=== PATIENT | female | born 1975 | race Caucasian/White ===

== ENCOUNTER 2016-04-26 22:25 | Emergency (ER) | payer SELFPAY ==
[2016-04-26] MEDS ORDERED: ASPIRIN 81 MG TABLET, CHEWABLE PO ONE (23:20)
--- NOTE | 2016-04-26 23:31 | ER Document Report ---
ED General - General Chief Complaint: Chest Tightness Stated Complaint: CHEST PAIN Notes: Patient is a 41-year-old female with past medical history of coronary artery disease with a prior history of AL 3 years ago with a single stent placed, hypertension, hyperlipidemia who presents with 7 hours of chest pain. Does describe it as a left-sided, sharp, dull pain. It has been unchanged since onset. Nothing improves the pain. States that her symptoms feel different than when she had her AL in the past. She denies any associated shortness of breath , nausea, vomiting, exertional dyspnea or pain. Movement does worsen the pain. She has not seen her primary care physician regarding today's concerns. - Related Data Allergies/Adverse Reactions: benzoin Allergy (Verified 04/26/16 22:42) Past Medical History - General Information source: Patient - Social History Smoking Status: Never Smoker Frequency of alcohol use: None Drug Abuse: None Lives with: Spouse/Significant other Family History: Reviewed & Not Pertinent Patient has suicidal ideation: No Patient has homicidal ideation: No Renal/ Medical History: Denies: Hx Peritoneal Dialysis Review of Systems - Review of Systems Notes: Constitutional: Negative for fever. HENT: Negative for sore throat. Eyes: Negative for visual changes. Cardiovascular: Positive for chest pain. Respiratory: Negative for shortness of breath. Gastrointestinal: Negative for abdominal pain, vomiting or diarrhea. Genitourinary: Negative for dysuria. Musculoskeletal: Negative for back pain. Skin: Negative for rash. Neurological: Negative for headaches, weakness or numbness. 10 point ROS negative except as marked above and in HPI. Physical Exam - Vital signs Vitals: Temp Pulse Resp BP Pulse Ox 97.9 F 85 18 162/80 H 96 04/26/16 22:29 04/26/16 22:29 04/26/16 22:29 04/26/16 22:29 04/26/16 22:29 Interpretation: Hypertensive Notes: PHYSICAL EXAMINATION: GENERAL: Well-appearing, well-nourished and in no acute distress. HEAD: Atraumatic, normocephalic. EYES: Pupils equal round and reactive to light, extraocular movements intact, sclera anicteric, conjunctiva are normal. ENT: nares patent, oropharynx clear without exudates. Moist mucous membranes. NECK: Normal range of motion, supple without lymphadenopathy LUNGS: Breath sounds clear to auscultation bilaterally and equal. No wheezes rales or rhonchi. HEART: Regular rate and rhythm without murmurs ABDOMEN: Soft, nontender, normoactive bowel sounds. No guarding, no rebound. No masses appreciated. EXTREMITIES: Normal range of motion, no pitting or edema. No cyanosis. NEUROLOGICAL: No focal neurological deficits. Moves all extremities spontaneously and on command. PSYCH: Normal mood, normal affect. SKIN: Warm, Dry, normal turgor, no rashes or lesions noted. Course - Re-evaluation Re-evalutation: 04/26/16 23:29 Presentation of chest pain in an otherwise well appearing patient. Low clinical suspicion for ACS given clinical history, exam, EKG without ST elevations or depressions, and negative initial troponin. HEART score less than or equal to 3. PE also seems unlikely given clinical history, absence of tachycardia or dyspnea. Patient is PERC criteria negative. CXR without evidence of pneumothorax or pneumonia. No widened mediastinum. Aortic dissection also seems unlikely given history, symmetric pulses, CXR, and vitals. Given reassuring evaluation, will plan for discharge home at this time with return precautions and follow-up recommendations. HEART Score: History:0 EC Age:0 Risk Factors:2 Troponin:0 Total: 3 04/27/16 02:43 Second troponin remains negative. Patient continues to be chest pain-free. Final assessment: Chest pain in a patient without evidence of cardiac or other serious etiology on workup today. I discussed with patient that, based on their age, risk factors and emergency department testing today, the likelihood that their symptoms are related to a heart attack is very low (estimated risk of heart attack or over the next 30 days of less than 1%). The patient demonstrates decision making capacity and has verbalized an understanding of these risks to me. Based on this, the patient has chosen to follow-up as an outpatient. Usual chest pain return precautions reviewed. The patient states understanding and agreement with this plan. - Vital Signs Vital signs: Temp Pulse Resp BP Pulse Ox 97.9 F 85 23 H 128/70 H 97 04/26/16 22:29 04/26/16 22:29 04/27/16 02:01 04/27/16 02:01 04/27/16 02:01 - Laboratory Result Diagrams: 04/26/16 23:02 Laboratory results interpreted by me: 04/26/16 23:02 Glucose 164 H - Diagnostic Test Radiology reviewed: Image reviewed, Reports reviewed Radiology results interpreted by me: 04/27/16 00:56 Chest x-ray: No pneumothorax or wide mediastinum - EKG Interpretation by Me Additional EKG results interpreted by me: 04/26/16 23:31 Normal sinus rhythm. Rate 78. No ST elevations or depressions. T-wave inversions in V2-3. QTC 428 Discharge - Discharge Clinical Impression: Chest pain Qualifiers: Chest pain type: unspecified Qualified Code(s): R07.9 - Chest pain, unspecified Condition: Good Disposition: HOME, SELF-CARE Additional Instructions: You were seen today for chest pain. The exact cause of your pain is unclear. However, based on your cardiac enzyme testing, chest x-ray, and EKG it does not appear that it is from an immediately life-threatening cause at this time. Although your testing here is normal is critical that you follow-up with your primary care physician for continued evaluation of this chest pain and possible stress testing. I recommended you see your physician within the next 24-48 hours to be evaluated for consideration of a stress test. Please return to emergency department immediately if you have worsening of your chest pain, shortness of breath, vomiting, become unable to exert yourself due to pain or difficulty breathing, you pass out, or have any pain that radiates into your arms, jaw, or back. Please also return if you have any additional symptoms that are concerning to you.
[2016-04-26 23:44] LABS: ANION GAP 11 (5-19); BLOOD UREA NITROGEN 17 mg/dL (7-20); CARBON DIOXIDE 28 mmol/L (22-30); CHLORIDE 100 mmol/L (98-107); CREATININE RESULT 0.77 mg/dL (0.52-1.25); GLUCOSE 164 mg/dL (75-110); SODIUM 139.2 mmol/L (137-145)
[2016-04-27] MEDS ORDERED: MORPHINE SULFATE 10 MG/ML INJ IV PRN (00:55)
[2016-04-27 03:05] VITALS: BP 149/82
--- NOTE | 2016-04-27 09:24 | EKG REPORT ---
SEVERITY:- BORDERLINE ECG - SINUS RHYTHM CONSIDER ANTERIOR INFARCT BORDERLINE T ABNORMALITIES, ANTERIOR LEADS : Confirmed by: Roe Mcduffie 27-Apr-2016 09:22:39
== END 2016-04-27 03:05 | disposition home or self-care (01) ==
LOC: ER 22:25
DX: R07.89 Other chest pain (principal); I25.10 Atherosclerotic heart disease of native coronary artery without angina pectoris; I25.2 Old myocardial infarction; I10 Essential (primary) hypertension; Z98.61 Coronary angioplasty status; Z88.8 Allergy status to other drugs, medicaments and biological substances
CPT/HCPCS: 36415; 71010; 80048; 84484; 93005; 93010; 99285

== ENCOUNTER 2016-10-18 16:43 | Emergency (ER) | payer SELFPAY ==
--- NOTE | 2016-10-18 17:00 | ER Document Report ---
ED Medical Screen (RME) - General Chief Complaint: Suicidal Ideation Stated Complaint: EDIVC Time Seen by Provider: 10/18/16 16:57 Notes: Patient presents with suicidal ideation and depression. Patient is on IVC and is accompanied by officers. She denies any medical complaints at this time. TRAVEL OUTSIDE OF THE [place] IN LAST 30 DAYS: No - Related Data Allergies/Adverse Reactions: benzoin Allergy (Verified 10/18/16 16:48) Past Medical History Renal/ Medical History: Denies: Hx Peritoneal Dialysis Physical Exam - Vital signs Vitals: Temp Pulse Resp BP Pulse Ox 99.0 F 103 H 20 188/92 H 94 10/18/16 16:50 10/18/16 16:50 10/18/16 16:50 10/18/16 16:50 10/18/16 16:50 Course - Vital Signs Vital signs: Temp Pulse Resp BP Pulse Ox 99.0 F 103 H 20 188/92 H 94 10/18/16 16:50 10/18/16 16:50 10/18/16 16:50 10/18/16 16:50 10/18/16 16:50
[2016-10-18 17:35] LABS: ABSOLUTE BASOPHILS # (AUTO) 0.1 10^3/uL (0.0-0.2); ABSOLUTE EOSINOPHILS # (AUTO) 0.3 10^3/uL (0.0-0.6); ABSOLUTE LYMPHOCYTES (AUTO) 2.3 10^3/uL (0.5-4.7); ABSOLUTE MONOCYTES (AUTO) 0.5 10^3/uL (0.1-1.4); ABSOLUTE NEUT (AUTO) 6.9 10^3/uL (1.7-8.2); BASOPHILS % (AUTO) 0.9 % (0-2); EOSINOPHILS % (AUTO) 2.7 % (0-6); HEMATOCRIT 45.3 % (36.0-47.0); HEMOGLOBIN 15.6 g/dL (12.0-15.5); HGB HCT DIFFERENCE 1.5; LYMPHOCYTES % (AUTO) 22.6 % (13-45); MEAN CORPUSCULAR HEMOGLOBIN 30.1 pg (27.0-33.4); MEAN CORPUSCULAR HGB CONC 34.4 g/dL (32.0-36.0); MEAN CORPUSCULAR VOLUME 88 fl (80-97); MONOCYTES % (AUTO) 5.4 % (3-13); RED BLOOD COUNT 5.18 10^6/uL (3.72-5.28); RED CELL DISTRIBUTION WIDTH 12.9 % (11.5-14.0); SEGMENTED NEUTROPHILS % (AUTO) 68.4 % (42-78); WHITE BLOOD COUNT 10.1 10^3/uL (4.0-10.5)
[2016-10-18 17:56] LABS: ALANINE AMINOTRANSFERASE 36 U/L (9-52); ALBUMIN 4.6 g/dL (3.5-5.0); ALKALINE PHOSPHATASE 106 U/L (38-126); ANION GAP 17 (5-19); ASPARTATE AMINO TRANSFERASE 21 U/L (14-36); BILIRUBIN,DIRECT 0.3 mg/dL (0.0-0.4); BILIRUBIN,TOTAL 0.5 mg/dL (0.2-1.3); BLOOD UREA NITROGEN 12 mg/dL (7-20); CALCIUM 9.7 mg/dL (8.4-10.2); CARBON DIOXIDE 22 mmol/L (22-30); CHLORIDE 103 mmol/L (98-107); CREATININE RESULT 0.82 mg/dL (0.52-1.25); GLUCOSE 134 mg/dL (75-110); POTASSIUM 3.5 mmol/L (3.6-5.0); SODIUM 142.4 mmol/L (137-145); TOTAL PROTEIN 7.6 g/dL (6.3-8.2)
[2016-10-18 17:57] LABS: ALCOHOL < 10 mg/dL (NONE DETECTED)
--- NOTE | 2016-10-18 19:33 | ER Document Report ---
ED Psych Disorder / Suicide - General Chief Complaint: Suicidal Ideation Stated Complaint: SUICIDAL IDEATION Time Seen by Provider: 10/18/16 16:57 Mode of Arrival: Ambulatory Information source: Patient Notes: This is a 41-year-old female with a history of diabetes, [place] in 2010 and presents to the emergency room as an IVC. Patient states she felt depressed today and had called her ask in [place] and they got into an argument and she then sent him a text of a picture of her with a sheet over her head. She states she was just frustrated and she denies any intentions on killing herself. She states she just started a job that she actually loves and she has a very supportive boyfriend she is living with. Boyfriend is by her side. She just moved here from [place] in July. Note: Patient states she does have a history of low blood pressure but she has had white coat syndrome in the past. She denies chest pain, abdominal pain, shortness of breath. TRAVEL OUTSIDE OF THE [place] IN LAST 30 DAYS: No - HPI Patient complains to provider of: Other - Put in for concerns for self injury Onset: Just prior to arrival Onset was: Sudden Quality of pain: No pain Severity: None Pain Level: Denies Suicide Risk Factors: Depressed. No: Age <19, Age >65, Bipolar, Chronic illness , Frightened friends/family, Hallucinations, Lack of social support, Left letter of attempt, Lethal weapons in home, Loss of rational thought, Male, No spouse, Organized plan, Panic disorder, Prior suicide attempt, Schizophrenia, Substance abuse, Other mental health dx. Situational problems related to: Other - Ex- Suicide Attempt Method: denies: Drowning, Hanging, Motor Vehicle, Overdose, Shooting, Stabbing/Cutting, Train, Other Overdose of: No: Acetominophen, Alcohol, Anticholinergic, Anti-depressants, Benzodiazepine, Salicylate, Tricyclic Antidepressant, Other Injury to: No: Generalized, Abdomen, Ankle, Back, Breast, Buttocks, Chest, Elbow , Epigastric, Flank, Face, Finger, Foot, Hand, Head, Hip, Knee, Leg, Lower extremity, Mouth, Neck, Pelvic, Penis, Perineum, Rectum, Shoulder, Testicle, Thigh, Throat, Trunk, Upper extremity, Vagina, Wrist Normal mood: Yes - She has been depressed Associated symptoms: Depressed Similar symptoms previously: No Recently seen / treated by doctor: No - Related Data Allergies/Adverse Reactions: benzoin Allergy (Verified 10/18/16 16:48) Past Medical History - General Information source: Patient - Social History Smoking Status: Current Every Day Smoker Cigarette use (# per day): Yes - Half a pack a day Chew tobacco use (# tins/day): No Smoking Education Provided: No Frequency of alcohol use: None Drug Abuse: None Lives with: Family Family History: Reviewed & Not Pertinent Patient has suicidal ideation: Yes Patient has homicidal ideation: No - Past Medical History Cardiac Medical History: Reports: Hx Heart Attack Pulmonary Medical History: Reports: None Neurological Medical History: Reports: None Endocrine Medical History: Reports: Hx Diabetes Mellitus Type 2 Renal/ Medical History: Reports: None Malignancy Medical History: Reports: None GI Medical History: Reports: None Musculoskeltal Medical History: Reports None Skin Medical History: Reports None Psychiatric Medical History: Reports: None Traumatic Medical History: Reports: None Infectious Medical History: Reports: None Surgical Hx: Negative Review of Systems - Review of Systems Constitutional: denies: Chills, Fever EENT: No symptoms reported Cardiovascular: No symptoms reported Respiratory: No symptoms reported Gastrointestinal: No symptoms reported Genitourinary: No symptoms reported Female Genitourinary: No symptoms reported Musculoskeletal: No symptoms reported Skin: No symptoms reported Hematologic/Lymphatic: No symptoms reported Neurological/Psychological: See HPI Physical Exam - Vital signs Vitals: Temp Pulse Resp BP Pulse Ox 99.0 F 103 H 20 188/92 H 94 10/18/16 16:50 10/18/16 16:50 10/18/16 16:50 10/18/16 16:50 10/18/16 16:50 Notes: Physical exam: GENERAL: 41-year-old female, alert and oriented 3, no acute distress HEAD: Atraumatic, normocephalic. EYES: Pupils equal round and reactive to light, extraocular movements intact, sclera anicteric, conjunctiva are normal. ENT: TMs normal, nares patent, oropharynx clear without exudates. Moist mucous membranes. NECK: Normal range of motion, supple without lymphadenopathy or JVD. LUNGS: Breath sounds clear to auscultation bilaterally and equal. No wheezes rales or rhonchi. HEART: Regular rate and rhythm without murmurs, rubs or gallops. ABDOMEN: Soft, normoactive bowel sounds. No tenderness to palpation. No guarding, no rebound. No masses appreciated. EXTREMITIES: Normal range of motion, no pitting or edema. No clubbing or cyanosis. NEUROLOGICAL: Cranial nerves II through XII grossly intact. Normal speech, normal gait. PSYCH: Patient is alert and oriented 3, there is no hallucinations or delusions. She seems well adjusted. She states that she is embarrassed that she gotten this fight this afternoon. She is accompanied by her boyfriend who seems very supportive. She denies any homicidal or suicidal ideations at this time. She is concerned that she is going to lose her job if she does not show up for work tomorrow. SKIN: Warm, Dry, normal turgor, no rashes or lesions noted. Course - Re-evaluation Re-evalutation: 10/18/16 19:45 Discussed the case with Dr. Diaz who agrees with recinding the IVC. After in -depth discussions with the patient and her boyfriend and seems very supportive , I do not think she meets criteria for involuntary commitment. She denies any homicidal or suicidal ideations. She is mentating clearly and appears quite competent. She states she got into an argument with her ex- and was frustrated and felt depressed. She states she has a lot to live for and no intentions on doing anything. She has no access to guns. Her relationship with her boyfriend is good and they live together. She just started a job and she is concerned she might lose it if she does not show up tomorrow for work. - Vital Signs Vital signs: Temp Pulse Resp BP Pulse Ox 98.1 F 90 18 143/76 H 100 10/18/16 20:25 10/18/16 20:25 10/18/16 20:25 10/18/16 20:25 10/18/16 20:25 - Laboratory Result Diagrams: 10/18/16 17:21 10/18/16 17:21 Laboratory results interpreted by me: 10/18/16 10/18/16 17:21 17:21 Hgb 15.6 H Potassium 3.5 L Glucose 134 H Salicylates < 1.0 L Acetaminophen < 10 L Discharge - Discharge Clinical Impression: Depression, Hypertension asymptomatic Condition: Stable Disposition: HOME, SELF-CARE Additional Instructions: I want you to follow-up with [facility] for counseling. Please call tomorrow. I did speak to the psychologist service station equipment mechanic Dr. Diaz) and she will be leaving work with them. When you call them, say you were recently in the emergency room and the ER doctor wanted you seen for counseling. [facility] [phone] [facility] Return to the emergency room for any thoughts of wanting to hurt yourself or any thoughts of losing control. Regarding Blood Pressure: Your blood pressure was noted to be greater than 120/80 at least once in the emergency room today. It is recommended that you follow-up with a primary care physician in the next week for repeat blood pressure check. The Centers for Medicare and Medicaid Services has specific recommendations regarding a person's blood pressure. There are several lifestyle modifications that are recommended in order to help lower your blood pressure. These include: Quitting smoking if you smoke. Reducing the amount of sodium in your diet. Getting regular exercise Limiting alcohol to no more than 2 drinks a day for men and one drink a day for women. Eating a healthy diet, including more fruits and vegetables, low fat dairy products, less saturated and total fat. Losing weight if you are overweight. FOLLOW-UP: [facility]: The numbers on the chart Referrals: [facility] [Provider Group] - Follow up as needed (This is the number of the free clinic affiliated with the hospital. You can have your blood pressure rechecked here as well as your hemoglobin A1c checked.)
[2016-10-18 20:30] VITALS: BP 143/76
--- NOTE | 2016-10-19 16:22 | EKG REPORT ---
SEVERITY:- ABNORMAL ECG - SINUS RHYTHM ABNRM R PROG, CONSIDER ASMI OR LEAD PLACEMENT : Confirmed by: Alesia Rosado MD 19-Oct-2016 16:21:58
== END 2016-10-18 20:20 | disposition home or self-care (01) ==
LOC: ER 16:43
DX: F32.9 Major depressive disorder, single episode, unspecified (principal); I10 Essential (primary) hypertension; E11.9 Type 2 diabetes mellitus without complications; I25.2 Old myocardial infarction; I95.9 Hypotension, unspecified; F17.210 Nicotine dependence, cigarettes, uncomplicated
CPT/HCPCS: 36415; 80053; 80307; 84703; 85025; 93005; 93010; 99285